=== PATIENT | female | born 1940 | race Caucasian/White ===

== ENCOUNTER 2017-12-04 10:23 | Emergency (ER) | payer MEDICARE ==
[2017-12-04] MEDS ORDERED: HYDROCODONE/ACETAMINOPHEN 10/325 MG TAB ONE (10:49)
[2017-12-04] MEDS ORDERED: TETANUS/DIPHTHERIA TOXOID [ADULT] 0.5 ML VIAL IM ONE (10:59)
[2017-12-04] MEDS ORDERED: LIDOCAINE HCL 1% 20 ML VIAL ONE (11:05)
== END 2017-12-04 12:49 | disposition home or self-care (01) ==
LOC: EDH 10:23
DX: S81.811A Laceration without foreign body, right lower leg, initial encounter (principal); E11.9 Type 2 diabetes mellitus without complications; M81.0 Age-related osteoporosis without current pathological fracture; Z88.0 Allergy status to penicillin; Z88.6 Allergy status to analgesic agent; W18.2XXA Fall in (into) shower or empty bathtub, initial encounter; Y93.89 Activity, other specified; Y92.89 Other specified places as the place of occurrence of the external cause; Y99.8 Other external cause status
CPT/HCPCS: 12032; 73562; 90471; 90714